=== PATIENT | male | born 1955 | race Caucasian/White ===

== ENCOUNTER 2018-09-23 17:15 | Emergency (ER) | payer MEDICARE ==
[2018-09-23 17:26] VITALS: BP 131/80
--- NOTE | 2018-09-23 17:40 | ER Document Report ---
HPI - HPI Patient complains to provider of: right ear drainage Onset: Other - 3 days Pain Level: 4 Context: 63-year-old male complaining of copious yellow drainage from his right ear without blood for 3 days. The ear hurts. No previous or prior upper respiratory infection. No fever Associated Symptoms: None Exacerbated by: Movement Relieved by: Denies Similar symptoms previously: No Recently seen / treated by doctor: No - ROS ROS below otherwise negative: Yes Systems Reviewed and Negative: Yes All other systems reviewed and negative Past Medical History - General Information source: Patient - Social History Smoking Status: Current Every Day Smoker Lives with: Family Family History: Reviewed & Not Pertinent - Medical History Medical History: Negative Surgical Hx: Negative Vertical Provider Document - CONSTITUTIONAL Agree With Documented VS: Yes Exam Limitations: No Limitations - INFECTION CONTROL TRAVEL OUTSIDE OF THE [place] IN LAST 30 DAYS: No - HEENT Notes: base of right ear canal inflamed, raw, yellow drainage, can't see the whole TM but what I do see is erythematous and mildly bulging. pain with tragus and pinna movements, mastoid is nontender, there are a few preauricular nodes - NECK Neck: Supple. negative: Lymphadenopathy-Left, Lymphadenopathy-Right - NEURO Level of Consciousness: Alert Course - Re-evaluation Re-evalutation: 09/23/18 18:32 Pharmacy does not have the Floxin eardrops that he needs because I suspect a ruptured TM although I cannot see it. I did a wound culture of the otorrhea. There is some external ear canal inflammation, the mastoid is nontender, there is preauricular nodes, there is no tenderness to the pinna although when you move it it hurts. 09/23/18 18:[address] Cristo Agee who agrees with the Floxin otic drops and have the patient call in the morning for follow-up appointment and tell the patient to keep the ear dry - Vital Signs Vital signs: Temp Pulse Resp BP Pulse Ox 98.0 F 83 16 131/80 H 98 09/23/18 17:25 09/23/18 17:25 09/23/18 17:25 09/23/18 17:25 09/23/18 17:25 Discharge - Discharge Clinical Impression: suppurative right ear drainage, possible rupture TM Otitis externa Qualifiers: Otitis externa type: unspecified type Chronicity: acute Laterality: right Qualified Code(s): H60.501 - Unspecified acute noninfective otitis externa, right ear Condition: Good Disposition: HOME, SELF-CARE Instructions: Acetaminophen, Use of Ear Drops ([facility]), Ibuprofen (General) ([facility]) , Warm Packs ([facility]) Additional Instructions: warm compress see the ENT doctor this week, call the office in the morning keep the ear dry use the drops that have been prescribed, 10 drops in right ear twice a day Prescriptions: Ibuprofen [Motrin 600 mg Tablet] 600 mg PO Q6HP PRN #30 tablet PRN Reason: Ofloxacin [Floxin] 10 drop AD DAILY #1 bot Referrals: HALIE RAPHAEL MD [ACTIVE STAFF] - Follow up tomorrow (call for appointment this week for follow up)
[2018-09-23] MEDS ORDERED: IBUPROFEN 600 MG TABLET PO ONE (18:33)
[2018-09-23] MEDS ORDERED: ACETAMINOPHEN 325 MG TABLET PO ONE (18:33)
== END 2018-09-23 19:00 | disposition home or self-care (01) ==
LOC: ER 17:15
DX: H60.501 Unspecified acute noninfective otitis externa, right ear (principal); H92.11 Otorrhea, right ear; F17.210 Nicotine dependence, cigarettes, uncomplicated
CPT/HCPCS: 99282; 87070; 87205; 87077; 87186; A9270 ×2